=== PATIENT | female | born 1945 | race Caucasian/White ===

== ENCOUNTER → 2016-04-02 | Outpatient (CLI) | payer BC ==
[~2016-04-02] MED LIST: GLIPIZIDE XL10 MG PO; GLIPIZIDE10 MG PO; JANUVIA100 MG PO; LANTUS 3 M100 UNITS1 SC; METFORMIN HCL1000 M1 PO; METFORMIN HCL1000 MG PO; PRESERVISION T1 EACH PO; PROPRANOLOL HC160 MG PO; SIMVASTATIN40 MG PO; ZESTORETIC 20-1 EAC1 PO
[2016-04-02 08:44] LABS: INTER. NORMALIZED RATIO 1.1; PROTHROMBIN TIME 11.7 (9.2-11.2); PTT 28.1 (25-32)
== END | disposition home or self-care (01) ==
LOC: OPR 07:49 → EDSTATUS 08:00
PROVIDERS: Surgery
PROC: 0H97XZZ Drainage of Abdomen Skin, External Approach (ICD-10-PCS; principal; 2016-04-02)
DX: L02.211 Cutaneous abscess of abdominal wall (principal)
CPT/HCPCS: 76942; 85610; 85730; 87070; 87075; 87077; 87186; 87205; 88160; 88305